=== PATIENT | male | born 1950 ===

== ENCOUNTER 2023-06-27 10:17 | Day surgery (SDC) | payer MEDICARE, OTHER ==
[~2023-06-27 10:17] MED LIST: ALPRAZolam 0.25 MG TAB PO PRN; ALPRAZolam 0.5 MG TAB PO PRN; ASPIRIN 325 MG TAB PO ONE; ATORVASTATIN 80 MG TAB PO ONE; HEPARIN SODIUM,PORCINE (1 ML) 2,500 UNIT in SODIUM CHLORIDE 0.9% 250 ML IRRIGATION PRN; HEPARIN SODIUM,PORCINE 10,000 UNIT in SODIUM CHLORIDE 0.9% 1,000 ML IRRIGATION PRN; NITROGLYCERIN SL TABS 0.4 MG TAB SUBLINGUAL PRN; SODIUM CHLORIDE 0.9% 1,000 ML in EMPTY BAG 1 BAG IV SCH
[2023-06-27] MEDS ORDERED: SODIUM CHLORIDE 0.9% 1,000 ML IV ONE (10:54)
[2023-06-27 11:01] VITALS: RESP 16; TEMP 98.1
[2023-06-27 11:38] LABS: Basophils % (A) 1 %; Eosinophils # (A) 0.1 k/uL (0-0.7); Eosinophils % (A) 2 %; HCT 44.5 % (39.0-53.0); Lymphocytes # (A) 0.8 k/uL (1.0-4.8); Lymphocytes % (A) 15 %; MCH 31.1 pg (25.0-35.0); MCHC 33.8 g/dL (31.0-37.0); MCV 91.9 fL (80.0-100.0); Mean Platelet Volume 6.8; Monocytes # (A) 0.3 k/uL (0-1.0); Monocytes % (A) 6 %; Neutrophils # (A) 3.9 k/uL (1.3-7.7); Neutrophils % (A) 74 %; Platelet Count 238 k/uL (150-450); RBC 4.84 m/uL (4.30-5.90); WBC 5.2 k/uL (3.8-10.6)
[2023-06-27 11:58] LABS: African American GFR (CKD) 81 (>60 ml/min/1.73 sqM); Anion Gap 9 mmol/L; Blood Urea Nitrogen 17 mg/dL (9-20); Calcium 9.4 mg/dL (8.4-10.2); Carbon Dioxide 28 mmol/L (22-30); Chloride 103 mmol/L (98-107); Glucose 94 mg/dL (74-99); Non-African American GFR(CKD) 70 (>60 ml/min/1.73 sqM); Potassium 4.5 mmol/L (3.5-5.1); Sodium 140 mmol/L (137-145)
[2023-06-27] MEDS ORDERED: VERAPAMIL 2.5 MG/ML 2 ML AMP ONE (12:09)
[2023-06-27] MEDS ORDERED: HEPARIN SODIUM 1,000 UN/ML (10ML VL) ONE (12:10)
[2023-06-27] MEDS ORDERED: MIDAZOLAM 2 MG/2 ML VIAL IVP ONE ×2 (12:32→12:44)
[2023-06-27] MEDS ORDERED: LIDOCAINE 1% INJ 10MG/ML (20 ML MDV) SQ ONE (12:35)
[2023-06-27] MEDS ORDERED: VERAPAMIL SYRINGE (5 MG/10 ML) INTRAARTER ONE (12:36)
[2023-06-27] MEDS: fentaNYL (PF) 50 MCG/ML 2 ML AMP IVP ONE ×2 (12:38→12:49)
[2023-06-27] MEDS ORDERED: fentaNYL (PF) 50 MCG/ML 2 ML AMP ONE (12:38)
[2023-06-27] MEDS ORDERED: fentaNYL (PF) 50 MCG/ML 2 ML AMP IVP ONE (12:38)
[2023-06-27] MEDS ORDERED: HEPARIN SODIUM 1,000 UN/ML (10ML VL) IVP ONE (12:41)
[2023-06-27] MEDS ORDERED: IOPAMIDOL-370 100ML BTL INJ ONE (12:57)
[2023-06-27] MEDS ORDERED: RX INFO: IV CONTRAST WAS GIVEN 1 EACH MISC MISCELLANE PRN (13:03)
--- NOTE | 2023-06-27 13:09 | P.PCN ---
Date of Procedure: 06/27/23 Operative Findings: CARDIAC CATHETERIZATION PERFORMING PHYSICIAN: Josh Salazar MD, RPVI PROCEDURE PERFORMED: 1. Selective right and left coronary angiogram 2. Left heart catheterization 3. iFR of the left main coronary artery 4. 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 Local anesthesia was performed using lidocaine subcutaneously. The right radial artery was cannulated using Seldinger technique, the guidewire passed easily, following that we advanced a 5-Peruvian sheath dilator assembly, the wire and dilator were removed and sheath was flushed. Following that, 2 mg of verapamil along with 5000 unit heparin were given. Selective right and left coronary angiogram using a 6-Peruvian JR4 and JL 3.5 catheters. Following that we did left heart catheterization using 6-Peruvian pigtail catheter. Subsequently I did iFR of the left main coronary artery after zeroing of the wire and equalizing between the Doppler wire and guiding catheter which was JL 3.5 guiding catheter the left main was engaged and subsequently it was wired and the wire was advanced toward the LAD. We did iFR and that came in to be nonischemic at 0.96. The procedure was completed was no complication The procedure was completed there was no complication. SELECTIVE CORONARY ANGIOGRAM: The right coronary artery: Large caliber vessel and a dominant vessel. The RCA has only mild disease in the midportion. Distally bifurcates into PDA and PLV branches and both appeared to be angiographically normal Left main: Has a plaque in the ostium and mid shaft appeared to be in the range of 30-40%. We did iFR and that came in to be nonischemic at 0.96 The left circumflex: Has mild disease by the ostium. Gives rise into the first and second obtuse marginal branches both appeared to have mild disease only. The left anterior descending artery: Appears to have mild disease only. The LAD in the midportion becomes small to medium caliber vessel. Gives rise into a large diagonal branch which appeared to be angiographically normal HEMODYNAMICS: The LVEDP was 12 mmHg was no significant gradient across aortic valve CONCLUSION: 1. 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 I did Doppler measurement with iFR and that came in to be no nflow limiting/nonischemic is 0.96 2. Normal left-sided filling pressure POSTPROCEDURE MANAGEMENT: Aggressive cholesterol control and risk factors modification and follow-up with the patient.
[2023-06-27] MEDS ORDERED: SODIUM CHLORIDE 0.9% 1,000 ML IV SCH (13:15)
[2023-06-27 16:49] VITALS: BP 144/76; PULSE 58
== END 2023-06-27 16:15 | disposition home or self-care (01) ==
LOC: CATHCVL 10:17
PROVIDERS: ATTEND Internal Medicine Interventional Cardiology
DX: I45.10 Unspecified right bundle-branch block (principal); I25.10 Atherosclerotic heart disease of native coronary artery without angina pectoris; E78.5 Hyperlipidemia, unspecified; I10 Essential (primary) hypertension; Z79.899 Other long term (current) drug therapy
CPT/HCPCS: 93571; 93458; 80048; 85025; 99152; 99153; C1887; C1769 ×2; C1894; J2250; J2001; J3010; J1644; Q9967

== ENCOUNTER → 2024-01-30 | Outpatient (CLI) | payer MEDICARE, OTHER ==
--- NOTE | 2024-01-31 10:02 | MR ---
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 Post contrast imaging was performed. Post IV contrast subtraction images were also submitted for review. IV Contrast: 7 cc Gadavist FINDINGS: LOWER CHEST: No gross irregularity. ABDOMEN Liver: No evidence for cirrhosis. Scattered high T2 signal cysts are seen throughout the liver. Signa l dropout on chemical shift out of phase imaging. Right hepatic lobe dome lesion with peripheral disc ontinuous progressive enhancement most compatible with hemangioma. Measuring 12 mm. Gallbladder and Bile ducts: No evidence for ductal dilation, or biliary stricture or evidence of chol edocholithiasis. The gallbladder is within normal limits. No polyp was visualized. Pancreas: No ductal dilation. No evidence for solid mass. Spleen: Normal for size. Small splenule is present. Adrenal glands: Unremarkable. Kidneys: Right inferior renal pole and 19 mm (previously 19 mm) low T2 signal intrinsic high T1 signa l lesion. There is misregistration artifact on subtraction imaging. There may be mild hypoenhancement evaluation difficult. Additional simple appearing bilateral renal cysts. No left renal cell neoplasm . No evidence for obstructive uropathy. Stomach and Bowel: No evidence for bowel wall thickening or evidence for obstruction. Retroperitoneum/Peritoneum: No evidence of pneumoperitoneum or free fluid. Vasculature: No aortic aneurysm. Musculoskeletal: The osseous structures appear intact. Lymph Nodes: No gross evidence for lymphadenopathy. Abdominal wall: Unremarkable. IMPRESSION: 1. Right renal 19 mm lesion with misregistration artifact on subtraction imaging. Given intrinsic hi gh T1 signal could represent hemorrhagic/proteinaceous cysts. Continued surveillance recommended hypo enhancing chromophobe or papillary renal cell carcinoma remain in the differential. This is similar i n size to prior. 2. Hepatic steatosis. 3. Simple appearing hepatic cysts. 4. Right hepatic lobe 12 mm observation most compatible with hepatic hemangioma.
== END | disposition home or self-care (01) ==
LOC: RADMRIMAIN 09:10
PROVIDERS: ATTEND Urology
DX: K76.0 Fatty (change of) liver, not elsewhere classified (principal); D41.01 Neoplasm of uncertain behavior of right kidney; K76.89 Other specified diseases of liver; N28.89 Other specified disorders of kidney and ureter
CPT/HCPCS: 74183; A9585

== ENCOUNTER → 2024-03-02 | Outpatient (CLI) | payer MEDICARE, OTHER ==
--- NOTE | 2024-03-10 18:32 | CT ---
EXAMINATION TYPE: CT chest wo con CT DLP: 327.2 mGycm, Automated exposure control for dose reduction was used. DATE OF EXAM: 03/02/2024 1:28 PM COMPARISON: None CLINICAL INDICATION:Male, 73 years old with history of R91.1 SOLITARY PULMONARY NODULE; PHH, nodules TECHNIQUE: Multiple axial images were obtained through the chest. Sagittal and coronal reformats were created for review. Contrast used: mL of (None if empty) Oral contrast used: (None if empty) FINDINGS: LUNGS/ PLEURA: Right lower lung 4 mm pulmonary nodule series 3 image 49. Left lower lobe nodule measu ring 4 mm series 3 image 42. Left upper lobe pulmonary nodule measuring 4 mm series 3 image 33. AIRWAY: Patent and unremarkable. HEART: Size within normal limits. coronary artery atherosclerosis. Aortic valve calcifications are mi ld. MEDIASTINUM: No gross evidence of adenopathy. VASCULATURE: No aortic aneurysm. MUSCULOSKELETAL: Mild disc degeneration changes are present throughout the thoracolumbar spine. SOFT TISSUES/LYMPH NODES: Unremarkable. LOWER NECK: No significant findings. UPPER ABDOMEN: No significant findings. IMPRESSION: 1. Pulmonary nodules measuring less than 6 mm. Incidentally detected nodules of this size are genera lly considered benign in individuals without concomitant risk factors such as smoking history or othe r risk factors for malignancy. Followup imaging is generally not performed, in accordance with [place] [employer] guidelines. In high-risk patients, a [address] thorax can be considered. 2. Moderate coronary artery atherosclerosis. Follow up recommendations for incidental pulmonary nodules, if there are any, are per [employer] in[employer]?s [employer] [employer] or [employer]. [email or web address]
== END | disposition home or self-care (01) ==
LOC: RADCTMAIN 13:02
PROVIDERS: ATTEND Internal Medicine
DX: R91.1 Solitary pulmonary nodule (principal); I25.10 Atherosclerotic heart disease of native coronary artery without angina pectoris
CPT/HCPCS: 71250

== ENCOUNTER → 2024-07-23 | Outpatient (CLI) | payer MEDICARE, OTHER ==
--- NOTE | 2024-07-23 10:17 | MR ---
EXAMINATION TYPE: MR kidney wo/w con DATE OF EXAM: 07/23/2024 9:04 AM COMPARISON: MRI 01/30/2024 CLINICAL INDICATION: Male, 73 years old with history of D41.01 R renal mass; PHH, Rt kidney lesion TECHNIQUE: Multiplanar multi-sequence imaging was performed without contrast. Post contrast imaging was performed. Post IV contrast subtraction images were also submitted for review. IV Contrast: 7 cc Gadobutrol FINDINGS: ABDOMEN Liver: No evidence for cirrhosis. Scattered high T2 signal cysts are seen throughout the liver. Signa l dropout on chemical shift out of phase imaging. Right hepatic lobe dome lesion with peripheral disc ontinuous progressive enhancement most compatible with hemangioma. Measuring 12 mm. Gallbladder and Bile ducts: No evidence for ductal dilation, or biliary stricture or evidence of chol edocholithiasis. The gallbladder is within normal limits. No polyp was visualized. Pancreas: No ductal dilation. No evidence for solid mass. Spleen: Normal for size. Small splenule is present. Adrenal glands: Unremarkable. Kidneys: Right inferior renal pole and 19 mm (previously 19 mm) low T2 signal intrinsic high T1 signa l lesion. There is misregistration artifact on subtraction imaging is again redemonstrated. There fin dings remain clinical for mild hypoenhancement evaluation difficult. Additional simple appearing bila teral renal cysts. No left renal cell neoplasm. No evidence for obstructive uropathy. Stomach and Bowel: No evidence for bowel wall thickening or evidence for obstruction. Retroperitoneum/Peritoneum: No evidence of pneumoperitoneum or free fluid. Vasculature: No aortic aneurysm. Musculoskeletal: The osseous structures appear intact. Lymph Nodes: No gross evidence for lymphadenopathy. Abdominal wall: Unremarkable. IMPRESSION: 1. Right renal 19 mm lesion with misregistration artifact again on subtraction imaging. There remain s intrinsic high T1 signal could represent hemorrhagic/proteinaceous cysts. Finding remains similar i n size to prior. One-year follow-up MRI kidney mass protocol recommended. 2. Hepatic steatosis. 3. Simple appearing hepatic cysts. 4. Right hepatic lobe 12 mm observation most compatible with hepatic hemangioma. [facility], , 07/23/2024 10:14 AM
== END | disposition home or self-care (01) ==
LOC: RADMRIMAIN 08:03
PROVIDERS: ATTEND Urology
CPT/HCPCS: 74183

== ENCOUNTER 2025-03-15 07:56 | Day surgery (SDC) | payer MEDICARE, OTHER ==
[2025-03-13 09:03] VITALS: BMI 22.8
[2025-03-15] MEDS ORDERED: HYDROmorphone 0.5 MG/0.5 ML SYRINGE IVP PRN (08:03)
[2025-03-15] MEDS ORDERED: MIDAZOLAM 2 MG/2 ML VIAL IV PRN (08:03)
[2025-03-15 08:17] VITALS: TEMP 97.3
[2025-03-15] MEDS: IV FLUID CONTINUATION 1,000 ML IV ONE (08:35)
[2025-03-15] MEDS: ONDANSETRON 4 MG/2 ML VIAL IVP ONE (08:36)
[2025-03-15] MEDS: DEXAMETHASONE SOD PHOSPHATE 4 MG/ML 1 ML VIAL IV ONE (08:36)
[2025-03-15] MEDS: LACTATED RINGERS 1,000 ML IV SCH (08:36)
[2025-03-15 08:45] LABS: Glucose,Whole Blood 92 mg/dL (70-110)
[2025-03-15] MEDS ORDERED: PROPOFOL 10 MG/ML 20 ML VIAL IV ONE (08:55)
[2025-03-15] MEDS ORDERED: fentaNYL (PF) 50 MCG/ML 2 ML AMP ONE (08:55)
[2025-03-15] MEDS ORDERED: KETAMINE HCL IN 0.9 % NACL 50 MG/5 ML SYRINGE ONE (08:55)
[2025-03-15] MEDS ORDERED: MIDAZOLAM 2 MG/2 ML VIAL ONE (08:55)
[2025-03-15] MEDS: ceFAZolin 2 GM in DEXTROSE 5% IN WATER 50 ML IVPB PRN (09:00)
[2025-03-15] MEDS: BUPIVACAINE (PF) 0.25% 30 ML VIAL SQ ONE (09:10)
[2025-03-15 10:10] VITALS: BP 130/79; PULSE 48; RESP 14
--- NOTE | 2025-03-15 11:02 | P.OP ---
Date of Procedure: 03/15/25 Preoperative Diagnosis: Soft tissue mass right foot Postoperative Diagnosis: Same Procedure(s) Performed: Excision of soft tissue mass, subcutaneous tissue, measuring greater than 1.5 cm Implants: None Anesthesia: JUSTYN Surgeon: Chester Norwood Estimated Blood Loss (ml): 1 Pathology: other (Soft tissue mass right foot) Condition: stable Disposition: PACU Description of Procedure: The patient is brought into the op room placed in table supine position. Timeout was taken to confirm correct patient identifiers, correct laterality of surgery, and correct procedure. Once all staff was in agreement with the timeout, the patient was placed under IV sedation anesthesia. 18 cc 0.25% Marcaine was injected as a forefoot block. A well-padded tourniquet was placed on the right ankle. The right foot was prepped and draped in the usual manner. The right foot was exsanguinated and the tourniquet inflated to 250 mmHg. Attention was directed over the lateral aspect of the fifth metatarsal phalangeal joint. A linear incision was made between the neurovascular structures. Is deepened down to the subcutaneous tissue careful to identify, avoid, retract any neurovascular structures and cauterize any bleeding vessels. Blunt dissection was continued through the subcutaneous layer plantar to the fifth metatarsal head. At that point the abnormal tissue which signifies the bursa was visually identified. It was also identifiable from the surrounding normal soft tissue. It was sharply dissected away from the normal soft tissue utilizing the natural planes between them. Lesion was excised in total. Measurements were approximately 1.5 cm. The area was inspected for any remaining portions of the lesion and none were found. The wound was irrigated with antibiotic saline. Subcutaneous closure was done with 4-0 Monocryl. Skin closure was done with 4-0 Stratafix in a running subcuticular manner. Dermal glue was placed over the incision and Steri-Strips. Nonadherent gauze and dry sterile dressing applied to the foot. The tourniquet is released and capillary refill returned all digits of the foot. The patient tolerated the procedure and anesthesia well. The patient left the operating room to recovery with vital signs stable.
== END 2025-03-15 10:45 | disposition home or self-care (01) ==
LOC: OR 07:56
PROVIDERS: ATTEND Podiatrist
DX: M77.51 Other enthesopathy of right foot and ankle (principal); I10 Essential (primary) hypertension; E78.5 Hyperlipidemia, unspecified; G60.9 Hereditary and idiopathic neuropathy, unspecified; Z79.899 Other long term (current) drug therapy
CPT/HCPCS: 28039; 88305; J2250; J1100; J0690; J2405; J3010; J2704; J0665